=== PATIENT | female | born 1995 | race Two or more races ===

== ENCOUNTER 2016-11-21 08:09 | Day surgery (SDC) | payer BC, OTHER ==
[2016-11-21] MEDS ORDERED: ONDANSETRON 4 MG/2 ML VIAL IVPUSH ONE (08:33)
[2016-11-21] MEDS ORDERED: SODIUM CHLORIDE 1,000 ML IV STA ×2 (08:33→10:43)
[2016-11-21] MEDS ORDERED: morphine CARPU-JECT 4 MG/1 ML DISP.SYRIN IVPUSH ONE ×2 (08:33→08:56)
[2016-11-21] MEDS ORDERED: morphine CARPU-JECT 4 MG/1 ML DISP.SYRIN ONE ×2 (08:35→09:00)
--- NOTE | 2016-11-21 08:37 | PDOC ---
History of Present Illness - General Chief Complaint: Pain, Acute Stated Complaint: ABD PAIN,VOMITING Time Seen by Provider: 11/21/16 08:34 Past History - Past Medical History Allergies/Adverse Reactions: Allergies Allergy/AdvReac Type Severity Reaction Status Date / Time No Known Allergies Allergy Verified 11/21/16 08:15 Home Medications: Ambulatory Orders NK [No Known Home Medication] 11/21/16 Asthma: No Cancer: No Cardiac Disorders: No Diabetes: No HTN: No Seizures: No Thyroid Disease: No Other medical history: DENIES - Surgical History Cholecystectomy: Yes - Psycho/Social/Smoking Cessation Hx Anxiety: No Suicidal Ideation: No Smoking History: Never smoked Have you smoked in the past 12 months: No Hx Alcohol Use: No Drug/Substance Use Hx: No Substance Use Type: Marijuana Hx Substance Use Treatment: No *Physical Exam - Vital Signs Last Vital Signs Temp Pulse Resp BP Pulse Ox 97.8 F 96 H 21 114/55 100 11/21/16 08:16 11/21/16 08:16 11/21/16 08:16 11/21/16 08:16 11/21/16 08:16
[2016-11-21] MEDS ORDERED: ONDANSETRON 4 MG/2 ML VIAL ONE (08:38)
[2016-11-21 08:50] LABS: BASOPHIL 0.2 % (0-2.0); EOSINOPHIL 0.5 % (0-4.5); MCH 30.7 pg (25.7-33.7); MCHC 34.4 g/dl (32.0-36.0); MEAN CELL VOLUME 89.3 fl (80-96); MEAN PLT VOLUME 9.2 fl (7.5-11.1); NEUTROPHILS 75.9 % (42.8-82.8); PLATELET COUNT 174 K/MM3 (134-434); RDW 12.8 % (11.6-15.6); WHITE BLOOD COUNT 7.5 K/mm3 (4.0-10.0)
--- NOTE | 2016-11-21 08:52 | PDOC ---
[id number] Timing/Duration: reports: getting worse Quality: reports: severe, sharpness Pain Radiation: reports: other (lower abd) <Lilia Loco Last Filed: 11/21/16 12:24> <Ayla Ramos - Last Filed: 11/26/16 21:57> - General Chief Complaint: Pain, Acute Stated Complaint: ABD PAIN,VOMITING Past History - Past Medical History Asthma: No Cancer: No Cardiac Disorders: No Diabetes: No HTN: No Seizures: No Thyroid Disease: No Other medical history: DENIES - Surgical History Cholecystectomy: Yes - Psycho/Social/Smoking Cessation Hx Anxiety: No Suicidal Ideation: No Smoking History: Never smoked Have you smoked in the past 12 months: No Hx Alcohol Use: No Drug/Substance Use Hx: No Substance Use Type: Marijuana Hx Substance Use Treatment: No <Lilia Loco - Last Filed: 11/21/16 12:24> <Ayla Ramos - Last Filed: 11/26/16 21:57> - Past Medical History Allergies/Adverse Reactions: Allergies Allergy/AdvReac Type Severity Reaction Status Date / Time No Known Allergies Allergy Verified 11/21/16 08:15 Home Medications: Ambulatory Orders Acetaminophen [Tylenol .Regular Strength -] 650 mg PO Q4H PRN #0 tablet Ascorbic Acid [C-500] 500 mg PO DAILY #30 tablet.er 11/22/16 Ferrous Sulfate [Feosol] 325 mg PO TID #90 tablet 11/22/16 Ibuprofen [Motrin -] 600 mg PO Q4H PRN #30 tablet 11/22/16 Oxycodone HCl/Acetaminophen [Percocet 5-325 mg Tablet] 1 tab PO Q6H #20 tablet MDD 4 tabs 11/22/16 Review of Systems - Review of Systems Constitutional: No: Chills, Fever ABD/GI: Yes: Nausea, Vomiting. No: Diarrhea : No: Dysuria, Frequency, Hematuria Musculoskeletal: Yes: Back Pain <Sara LocoCecilEsperanza Last Filed: 11/21/16 12:24> *Physical Exam - Vital Signs Last Vital Signs Temp Pulse Resp BP Pulse Ox 97.8 F 96 H 21 114/55 100 11/21/16 08:16 11/21/16 08:16 11/21/16 08:16 11/21/16 08:16 11/21/16 08:16 - Physical Exam General Appearance: Yes: Appropriately Dressed, Severe Distress HEENT: positive: Normal Voice Neck: positive: Supple Respiratory/Chest: negative: Respiratory Distress Female Pelvic Exam: positive: normal external exam, other (pt uncomfortable throughout entire pelvic exam, no vaginal bleeding, os closed). negative: CMT, discharge, lesions, vaginal bleeding Gastrointestinal/Abdominal: positive: Normal Bowel Sounds, Tender (diffuse ttp to pelvis and RLQ, exam limited 2/2 severe pain), Soft. negative: Hernia Musculoskeletal: negative: CVA Tenderness Integumentary: positive: Dry, Warm Neurologic: positive: Fully Oriented, Alert, Normal Mood/Affect <Lilia Loco - Last Filed: 11/21/16 12:24> - Vital Signs Last Vital Signs Temp Pulse Resp BP Pulse Ox 98.1 F 64 16 90/56 100 11/22/16 10:00 11/22/16 10:00 11/22/16 10:00 11/22/16 10:00 11/22/16 09:00 <Ayla Ramos - Last Filed: 11/26/16 21:57> ED Treatment Course - LABORATORY CBC & Chemistry Diagram: 11/21/16 08:25 11/21/16 08:25 - Medications Given in the ED: ED Medications Discontinued Medications Generic Name Dose Route Start Last Admin Trade Name Freq PRN Reason Stop Dose Admin Morphine Sulfate 4 mg 11/21/16 08:33 11/21/16 08:40 Morphine Injection - IVPUSH 11/21/16 08:34 4 mg ONCE ONE Administration Ondansetron HCl 4 mg 11/21/16 08:33 11/21/16 08:40 Zofran Injection IVPUSH 11/21/16 08:34 4 mg ONCE ONE Administration <Lilia Loco - Last Filed: 11/21/16 12:24> - LABORATORY CBC & Chemistry Diagram: 11/22/16 06:00 11/21/16 08:25 - ADDITIONAL ORDERS Additional order review: 11/22/16 11/21/16 11/21/16 06:00 17:00 08:25 RBC 2.67 L 3.25 L D 4.36 MCV 89.4 89.6 89.3 MCHC 34.2 34.3 34.4 RDW 12.7 12.8 12.8 D MPV 9.3 9.8 9.2 Neutrophils % 57.4 D 85.7 H 75.9 Lymphocytes % 36.0 D 11.2 D 18.6 D Monocytes % 5.9 D 2.9 L 4.8 Eosinophils % 0.6 D 0.1 0.5 Basophils % 0.1 0.1 0.2 - Medications Given in the ED: ED Medications Discontinued Medications Generic Name Dose Route Start Last Admin Trade Name Freq PRN Reason Stop Dose Admin Acetaminophen 650 mg 11/21/16 15:42 11/22/16 10:28 Tylenol - PO 650 mg Q4H PRN Administration FEVER OR PAIN Acetaminophen 1,000 mg 11/21/16 15:46 11/21/16 16:15 Ofirmev Injection - IVPB 11/22/16 09:47 1,000 mg Q6H PRN Administration FEVER OR PAIN Diphenhydramine HCl 12.5 mg 11/21/16 16:57 11/21/16 16:55 Benadryl Injection - IVPUSH 11/21/16 16:58 12.5 mg ONCE ONE Administration Hydromorphone HCl 1 mg 11/21/16 11:13 11/21/16 11:15 Dilaudid Injection - IVPB 11/21/16 11:14 1 mg ONCE ONE Administration Hydromorphone HCl 1 mg 11/21/16 12:30 11/21/16 12:35 Dilaudid Injection - IVPB 11/21/16 12:31 1 mg ONCE ONE Administration Hydromorphone HCl 1 mg 11/21/16 14:59 11/21/16 16:07 Dilaudid Injection - IVPUSH 11/24/16 15:00 1 mg [id number] PRN Administration PAIN Sodium Chloride 1,000 mls @ 1,000 mls/hr 11/21/16 08:33 11/21/16 08:40 Normal Saline - IV 11/21/16 09:32 1,000 mls/hr ASDIR STA Administration Sodium Chloride 1,000 mls @ 1,000 mls/hr 11/21/16 10:43 11/21/16 11:04 Normal Saline - IV 11/21/16 11:42 1,000 mls/hr ASDIR STA Administration Dextrose/Lactated Ringer's 1,000 mls @ 125 mls/hr 11/21/16 16:15 11/21/16 23:21 D5-Lr - IV 125 mls/hr ASDIR MANDO Administration Cefazolin Sodium 50 mls @ 100 mls/hr 11/21/16 23:00 11/21/16 22:59 Ancef 1 Gm Premixed Ivpb - IVPB 11/21/16 23:29 100 mls/hr ONCE ONE Administration Cefazolin Sodium 50 mls @ 100 mls/hr 11/22/16 07:00 11/22/16 06:24 Ancef 1gm Ivpb (Pre-Docked) IVPB 11/22/16 07:29 100 mls/hr ONCE ONE Administration Ibuprofen 400 mg 11/21/16 15:42 11/22/16 10:28 Motrin - PO 400 mg Q4H PRN Administration FEVER Ketorolac Tromethamine 30 mg 11/21/16 09:10 11/21/16 09:15 Toradol Injection - IVPUSH 11/21/16 09:11 30 mg ONCE ONE Administration Lorazepam 0.5 mg 11/21/16 17:22 11/21/16 16:27 Ativan Injection - IVPUSH 11/22/16 17:23 0.5 mg PRN PRN Administration AGITATION Morphine Sulfate 4 mg 11/21/16 08:33 11/21/16 08:40 Morphine Injection - IVPUSH 11/21/16 08:34 4 mg ONCE ONE Administration Morphine Sulfate 4 mg 11/21/16 08:56 11/21/16 09:03 Morphine Injection - IVPUSH 11/21/16 08:57 4 mg ONCE ONE Administration Ondansetron HCl 4 mg 11/21/16 08:33 11/21/16 08:40 Zofran Injection IVPUSH 11/21/16 08:34 4 mg ONCE ONE Administration Oxycodone HCl 5 mg 11/21/16 15:42 11/22/16 06:18 Roxicodone - PO 5 mg Q4H PRN Administration PAIN <Ayla Ramos - Last Filed: 11/26/16 21:57> Medical Decision Making - Medical Decision Making 11/21/16 08:46 21 yo F, s/p ann remotely, p/w severe pelvic pain x 2 days, described as sharp and constant w/ severity of 10/10 and a/w 1-2 e/o n/v. No ab/nl vag discharge, dysuria, change in BM, f/c. No h/o simialr pain. See exam Pelvic pain Pt in severe distress in ED but stable Limited abd exam currently 2/2 pain but has sig ttp diffusely to pelvis and RLQ Unable to perform pelvic exam at this time due to pain -Pain control and reassess -R/o preg -labs -CT r/o appy -?US 11/21/16 09:22 Serum preg +, called over to US and make aware of change to US protocol to r/o ectopic 11/21/16 10:43 US read as > 4cm complex mass to left adnexa concerning for ectopic as per radiology. Patient's beta-hCG is over 800. Pt remains stable at this time. Type and screen and coags in progress. Will consult with SUPERVISOR PLATE PASTING at this time 11/21/16 10:[address] Wheeler of meter changes records clerk, states she's enroute to ED. Patient to be made NPO at this time 11/21/16 10:49 11/21/16 11:28 Patient able to tolerate abdominal and pelvic exam at this time. Has significant tenderness to mid and left suprapubic area and uncomfortable throughout entire pelvic exam, no vaginal bleeding and OS closed. Currently in monitored bed receiving IV fluids, pain control and pending SUPER[employer]OR [employer] eval 11/21/16 11:53 Dr Almanzar now at bedside evaluating pt. States she will review US to confirm ectopic 11/21/16 12:24 Pt to go to OR now as per Dr Wheeler. Remains stable in ED <Lilia Loco - Last Filed: 11/21/16 12:24> *DC/Admit/Observation/Transfer - Discharge Dispostion Admit: Yes <Lilia Loco - Last Filed: 11/21/16 12:24> - Attestations Physician Attestion: I reviewed the case with the mid-level practitioner and agree with the mid- level practitioner's assessment, diagnosis and disposition. <Ayla Ramos - Last Filed: 11/26/16 21:57> Diagnosis at time of Disposition: Ectopic Qualifiers: Location of ectopic : unspecified location Intrauterine status: unspecified Qualified Code(s): O00.9 - Ectopic , unspecified - Discharge Dispostion Disposition: HOME Condition at time of disposition: Stable - Prescriptions - Referrals
[2016-11-21] MEDS ORDERED: KETOROLAC TROMETHAMINE 30 MG/1 ML VIAL IVPUSH ONE (09:10)
[2016-11-21] MEDS ORDERED: KETOROLAC TROMETHAMINE 30 MG/1 ML VIAL ONE ×2 (09:12→13:18)
[2016-11-21 10:09] LABS: ALBUMIN 4.2 g/dl (3.4-5.0); ANION GAP 8 (8-16); BILIRUBIN,TOTAL 0.3 mg/dL (0.2-1.0); CALCIUM 8.7 mg/dL (8.5-10.1); CO2 26 mmol/L (21-32); CREATININE 0.6 mg/dL (0.55-1.02); GLUCOSE,RANDOM 95 mg/dL (74-106); TOT PROT 7.4 g/dl (6.4-8.2)
[2016-11-21 10:10] LABS: ALK PHOS 68 U/L (45-117); SGOT/AST 10 U/L (15-37); SGPT/ALT 17 U/L (12-78)
[2016-11-21 11:03] LABS: URINE APPEARANCE CLEAR; URINE BILIRUBIN NEGATIVE (NEGATIVE); URINE BLOOD NEGATIVE (NEGATIVE); URINE COLOR LTYELLOW; URINE GLUCOSE (UA) NEGATIVE (NEGATIVE); URINE KETONE TRACE (NEGATIVE); URINE LEUK ESTERASE NEGATIVE (NEGATIVE); URINE NITRITE NEGATIVE (NEGATIVE); URINE PROTEIN NEGATIVE (NEGATIVE); URINE UROBILINOGEN NEGATIVE E.U./dl (0.2-1.0)
[2016-11-21] MEDS ORDERED: HYDROmorphone HCL CARPU-JECT 1 MG/1 ML DISP.SYRIN ONE ×2 (11:12→12:31)
[2016-11-21] MEDS ORDERED: HYDROmorphone HCL CARPU-JECT 1 MG/1 ML DISP.SYRIN IVPB ONE (11:13)
[2016-11-21] MEDS ORDERED: HYDROmorphone HCL CARPU-JECT 2 MG/1 ML DISP.SYRIN IVPB ONE (12:30)
--- NOTE | 2016-11-21 12:34 | HP ---
Past Medical History - Primary Care Physician PCP:: Melony Wheeler - Admission Chief Complaint: 21 yrs , Lmp 10/26/16 , ,c/o sudden onset of pain since 4.00am , progressively inceasingly accompanied by nausea & vomiting . ectopic pregn suspected [place] [facility] [place] Sono done, ut no iup, Lt side complex adnexal mass 4.5x4.1x2.7 cm , Lt ovary 1.9x1,7x2.5 cm cyst seen History of Present Illness: pt c/o pain for 2 days . she is been smoking Marijuana more to alleviate pain . 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 No: PID ...: 3 ...Para: 2 ...Term: 2 (2 2011 & 2013) ...LMP: 10/26/16 Heme/Onc: No: Anemia Infectious Disease: No: HIV, STD's Psych: No: Addictions, Anxiety, Bipolar, Depression Endocrine: No: Diabetes Mellitus, Hyperthyroidism, Hypothyroidism - Past Surgical History Past Surgical History: Yes: Cholecystectomy (Lap choly in 2006 in [facility]) Hx Myomectomy: No Hx Transabdominal Cerclage: No - Smoking History Smoking history: Never smoked Have you smoked in the past 12 months: No - Alcohol/Substance Use Hx Alcohol Use: No History of Substance Use: reports: Marijuana (daily . 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 Vital Signs: Vital Signs Temperature 97.8 F 11/21/16 08:16 Pulse Rate 96 H 11/21/16 08:16 Respiratory Rate 21 11/21/16 08:16 Blood Pressure 114/55 11/21/16 08:16 O2 Sat by Pulse Oximetry (%) 100 11/21/16 08:16 Constitutional: Yes: Severe Distress (pain scale 10/10) Eyes: Yes: WNL HENT: Yes: WNL Neck: Yes: WNL Cardiovascular: Yes: WNL Respiratory: Yes: WNL Gastrointestinal: Yes: Normal Bowel Sounds, Soft, Tenderness, Rebound (in lower abdomen LLQ.LLQ) Renal/: No: CVA Tenderness - Left, CVA Tenderness - Right, Vaginal Bleeding Pelvis: Yes: Tenderness (lower abd supf & deep tenderness) External Genitalia: Yes: Normal Vaginal Exam: Yes: Normal, Discharge (normal discharge) Cervix: Yes: Normal, Cerv Motion Tenderness Uterus: Yes: Normal, Anteverted, Tender Adnexa: Tender: Bilateral, Not Palpable: Bilateral (difficult to palpate due to pain ) Breast(s): Yes: WNL Musculoskeletal: Yes: WNL Extremities: Yes: WNL. No: Calf Tenderness Edema: No Integumentary: Yes: WNL Neurological: Yes: WNL, Alert, Oriented ...Motor Strength: WNL Psychiatric: Yes: WNL, Alert, Oriented Labs: CBC, BMP 11/21/16 08:25 11/21/16 08:25 Laboratory Tests 11/21/16 11/21/16 11/21/16 08:25 08:25 09:33 WBC 7.5 D Hgb 13.4 D Hct 39.0 D Plt Count 174 Neutrophils % 75.9 Lymphocytes % 18.6 D Monocytes % 4.8 Sodium 141 Potassium 3.4 L Chloride 107 Carbon Dioxide 26 BUN 14 D Creatinine 0.6 D Random Glucose 95 Calcium 8.7 Total Bilirubin 0.3 AST 10 L ALT 17 Beta HCG, Quant 810.7 Blood Type O POSITIVE Assessment/Plan 21 yrs 3 .5 weeks gestation, , bhcg 810 miu & Lt adnexal complexmass , free fluid in peritoneal cavity on us ac pain & tenderness highly suspicious of ectopic pregn, leaking. Diff Diagnosis : Early pregn With CL Cyst Rupture plan D&C Pelviscopy , possible Left salpingectomy
[2016-11-21] MEDS ORDERED: MIDAZOLAM HCL 2 MG/2 ML SINGLE DOSE VIAL ONE (13:18)
[2016-11-21] MEDS ORDERED: ceFAZolin SODIUM 1 GM VIAL ONE (13:18)
[2016-11-21] MEDS ORDERED: ROCURONIUM BROMIDE 50 MG/5 ML VIAL ONE (13:18)
[2016-11-21] MEDS ORDERED: DEXAMETHASONE SOD PHOSPHATE 4 MG/1 ML VIAL ONE (13:18)
[2016-11-21] MEDS ORDERED: SODIUM CHLORIDE 0.9% P/F 10 ML VIAL IJ ONE (13:18)
[2016-11-21 13:20] LABS: INR 1.2 (0.82-1.09); PROTHROMBIN TIME (PATIENT) 13.2 SEC (9.98-11.88)
[2016-11-21] MEDS ORDERED: ceFAZolin SODIUM 1 GM VIAL IVPB ONE (13:53)
[2016-11-21] MEDS ORDERED: PROMETHAZINE HCL 25 MG/1 ML VIAL IVPUSH PRN (14:59)
[2016-11-21] MEDS ORDERED: ONDANSETRON 4 MG/2 ML VIAL IVPUSH PRN (14:59)
[2016-11-21] MEDS ORDERED: NEOSTIGMINE METHYLSULFATE 0.5 MG/ML - 10 ML MDV ONE (15:14)
[2016-11-21] MEDS ORDERED: GLYCOPYRROLATE 0.2 MG/1 ML VIAL ONE (15:14)
[2016-11-21] MEDS ORDERED: HYDROmorphone HCL CARPU-JECT 2 MG/1 ML DISP.SYRIN ONE ×2 (15:45→16:00)
[2016-11-21] MEDS ORDERED: ACETAMINOPHEN 1000 MG/100 ML VIAL (NON FORMULARY) IVPB PRN (15:46)
[2016-11-21] MEDS: HYDROmorphone HCL CARPU-JECT 1 MG/1 ML DISP.SYRIN IVPUSH PRN ×3 (15:47→16:07)
--- NOTE | 2016-11-21 15:59 | OP ---
Operative Note - Note: Operative Date: 11/21/16 Pre-Operative Diagnosis: ectopic Operation: D&C, Pelvicscopic Left Salpingectomy, Suction irrigation of peritoneal cavity& Lysis of adnexal adhesions Findings: Ut 9 cm length, soft, Av, cx post uterine contents were old blood Peritoneal cavity full of blood & clots approx 500 ml , 300 ml blood approx suctioned out Rt Adnexa adhesions between & uterus tubes & ovaries , lysis was done LT adnexa Lt Tube distended in distal ampullary portion , tube rupture, blood clots extruding out from tube LT lateral salpingectomy done upto isthmus portion adhesions between lt tube & Ltovary lysis was done Post-Operative Diagnosis: Other (rupture Lt tubal ( ectopic) with hemoperitoneum) Surgeon: Melony Wheeler Treadle Cut Off Saw Operator: Savanna Jackson Anesthesiologist/SENIOR COURTROOM CLERK: Bobo Bravo Anesthesia: General Specimens Removed: uterune contents. Lt tube with cnotents Estimated Blood Loss (mls): 500 (300ml suctioned out ) Drains, Volume Out (mls): 220 (cota output 220 + irrigation 1300 ml )
[2016-11-21] MEDS ORDERED: ACETAMINOPHEN INJECTION 100 ML IVPB ONE (16:01)
[2016-11-21] MEDS ORDERED: LORAZEPAM CARPU-JECT 2 MG/ML DISP.SYRIN ONE (16:23)
[2016-11-21] MEDS ORDERED: LORAZEPAM CARPU-JECT 2 MG/ML DISP.SYRIN IVPUSH PRN (17:22)
[2016-11-21 17:44] LABS: BASOPHIL 0.1 % (0-2.0); EOSINOPHIL 0.1 % (0-4.5); MCH 30.7 pg (25.7-33.7); MCHC 34.3 g/dl (32.0-36.0); MEAN CELL VOLUME 89.6 fl (80-96); MEAN PLT VOLUME 9.8 fl (7.5-11.1); NEUTROPHILS 85.7 % (42.8-82.8); PLATELET COUNT 137 K/MM3 (134-434); RDW 12.8 % (11.6-15.6); WHITE BLOOD COUNT 7.7 K/mm3 (4.0-10.0)
[2016-11-21] MEDS: DEXTROSE 5%-LACTATED RINGERS 1,000 ML IV SCH ×3 (18:00→23:21)
[2016-11-21] MEDS: ACETAMINOPHEN 325 MG TABLET (FP) PO PRN ×2 (19:02→23:00)
[2016-11-21] MEDS: oxyCODONE HCL 5 MG TABLET PO PRN ×2 (19:03→22:59)
[2016-11-21] MEDS ORDERED: CEFAZOLIN (PRE-DOCKED) 50 ML IVPB ONE (22:54)
[2016-11-21] MEDS ORDERED: CEFAZOLIN 1 GM/D5W 50 ML IVPB ONE (23:00)
[2016-11-22 01:27] VITALS: BMI 28.4
[2016-11-22] MEDS ORDERED: CEFAZOLIN (PRE-DOCKED) 50 ML IVPB ONE ×2 (03:00→07:00)
[2016-11-22] MEDS: oxyCODONE HCL 5 MG TABLET PO PRN (06:18)
[2016-11-22] MEDS: IBUPROFEN 400 MG TABLET (FP) PO PRN ×2 (06:19→10:28)
[2016-11-22 07:44] LABS: BASOPHIL 0.1 % (0-2.0); EOSINOPHIL 0.6 % (0-4.5); MCH 30.6 pg (25.7-33.7); MCHC 34.2 g/dl (32.0-36.0); MEAN CELL VOLUME 89.4 fl (80-96); MEAN PLT VOLUME 9.3 fl (7.5-11.1); NEUTROPHILS 57.4 % (42.8-82.8); PLATELET COUNT 124 K/MM3 (134-434); RDW 12.7 % (11.6-15.6); WHITE BLOOD COUNT 4.6 K/mm3 (4.0-10.0)
--- NOTE | 2016-11-22 09:59 | DS ---
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 No: Vomiting Pelvis: Yes: Tenderness (mainly over LLQ incision) Vaginal Exam: Yes: Bleeding (minimal) Breast(s): Yes: WNL Musculoskeletal: Yes: WNL Extremities: Yes: WNL. No: Calf Tenderness Edema: No Wound/Incision: Yes: Clean/Dry, Dressing Dry and Intact Neurological: Yes: WNL, Alert, Oriented ...Motor Strength: WNL Psychiatric: Yes: WNL, Alert, Oriented Labs: CBC, BMP 11/22/16 06:00 11/21/16 08:25 Discharge Summary Reason For Visit: ECTOPIC Current Active Problems Anemia (Acute) Ectopic (Acute) Procedures: Principal: D&C Pelviscopic left salpingectomy , Lysis of adhesions , suction irrigation of hemoperitoneum , Hospital Course: pt taken from ER to OR . post op pain management with iv tylenol & oxycodone, & motrin given . IV fluids continued IV ancef prophylactic x 3 doses were given Condition: Stable - Instructions Diet, Activity, Other Instructions: high iron diet. plenty of po fluids oob, ambulate avoid sexual contact for 4 weeks RTC for f/u on Thursday11/25/16 at 2 [facility]. call [phone] for appt . continue po vitamins & iron pills , pain meds as reqd remove band aids tomorrow, do not remove steri strips. keep incision wounds clean & dry Referrals: Mary Doty MD [Primary Care Provider] - Melony Wheeler MD [Staff Physician] - - Home Medications Comprehensive Discharge Medication List: Ambulatory Orders Acetaminophen [Tylenol .Regular Strength -] 650 mg PO Q4H PRN #0 tablet Ascorbic Acid [C-500] 500 mg PO DAILY #30 tablet.er 11/22/16 Ferrous Sulfate [Feosol] 325 mg PO TID #90 tablet 11/22/16 Ibuprofen [Motrin -] 600 mg PO Q4H PRN #30 tablet 11/22/16 Oxycodone HCl/Acetaminophen [Percocet 5-325 mg Tablet] 1 tab PO Q6H #20 tablet MDD 4 tabs 11/22/16
[2016-11-22] MEDS: ACETAMINOPHEN 325 MG TABLET (FP) PO PRN (10:28)
[2016-11-22 10:41] VITALS: BP 90/56; PULSE 64; TEMP 98.1
--- NOTE | 2016-11-22 21:32 | OP ---
DATE OF OPERATION: 11/21/2016 PREOPERATIVE DIAGNOSIS: Ectopic . POSTOPERATIVE DIAGNOSIS: Left ruptured ectopic with hemoperitoneum. OPERATION DONE: Dilatation and curettage, pelviscopic left lateral salpingectomy, and suction irrigation of the hemoperitoneum. SURGEON: Melony Wheeler MD MILKING WORKER SURGEON: JONNY Mosley ANESTHESIOLOGIST: Bobo Bravo MD ANESTHESIA: General. FINDINGS: This is a 21-year-old 3, para 2-0-0-2. LMP is October 26. Beta HCG was 810. Presented with severe abdominal acute pain and ultrasound shows no IUP and a left adnexal complex mass, free fluid in the peritoneal cavity. PROCEDURE: Patient was taken to the operating room table. General anesthesia was given. Modified lithotomy position was given, and abdomen was painted and draped in usual manner. Pelvic examination was done. Uterus was anteverted and adnexae were not palpable. Cervix was posterior. Weighted speculum was put anteriorly. The cervix was held with a single-tooth tenaculum and cervix was dilated up to No. 7 dilator. The uterine cavity was curetted. Just old blood clots were obtained which were removed and then HUMI cannula was introduced into the uterine cavity. Tenaculum was removed. Weighted speculum was removed. Arias catheter was placed. Proceeded with the pelviscopy. Gloves were changed and position was readjusted. A small incision was made at the umbilicus level and a Veress needle was introduced into the peritoneal cavity. CO2 was insufflated into the peritoneal cavity and a 5-mm trocar and cannula were introduced from the same incision into the peritoneal cavity and position was confirmed. The blood clots were noted. Then, the 5-mm trocar and cannula were introduced from the right lower quadrant and 10-mm trocar and cannula were introduced from the left lower quadrant. Initially, some blood clots in the pelvic area and the blood were aspirated out. Then, from the left side LigaSure was inserted and from the right side grasper was held and the tube was isolated. First, adhesions were lysed between the left tube and ovary and then the tube was . Starting with the lateral portion of the tube between the mesosalpinx and the ovary closer to the distended portion of the tube,i it was cauterized and cut until the proximal portion of the tube was reached and then the specimen was . The left side findings were the adhesions between the left tube and ovary. The left tube was distended and it was ruptured and the blood clots were seen extruding out from the superior portion of the tube. The right tube and ovary were normal, but there were adhesions between the tube, ovary, and the uterus and some adhesions between the adnexae and the uterus where lysis was done there. Then, the attempt was made as much as possible blood clot irrigation and suction as much as possible was done in then reverse Trendelenburg and Trendelenburg position. Once it was made sure there was no active bleeding from the operative site, hemostasis was achieved and then Boom-Cesar device was introduced from the left side and the left port was closed with a Vicryl 0 suture and it was confirmed with the laparoscopic light that the complete peritoneum and anterior rectus sheath were closed. Then, the deep sutures were taken with a 2-0 Vicryl and then with a 4-0 Biosyn intradermal sutures were taken with all the incisions. Before closing all the incisions, it was made sure that the port underneath was clean and no bleeding was noted. The gas was then deflated and patient tolerated procedure well. Steri- Strips and Band-Aids were applied to the incision site. HUMI cannula was removed. Estimated blood loss was 500 mL, 300 mL suction was done, and the rest with the blood clots still in abdomen, mixed with omentum & between bowel loops could not be taken out, were left alone . and the urine output was 220 mL, jere color. Total irrigation fluid was 1300 mL. She was given IV Ancef prior to the starting of the procedure. Gisele [id number] MTDD
--- NOTE | 2016-11-25 12:10 | PATH ---
Surgical Pathology Report Patient Name: JOSE FITZGERALD Med. Rec. #: [id number] /Age/Gender: 1995 (Age: 21) / F Account: [id number] Location: AMBULATORY SURG Taken: 11/21/2016 Received: 11/24/2016 Reported: 11/25/2016 Physicians: Melony Wheeler M.D. Specimen(s) Received A: UTERINE CONTENTS B: LEFT FALLOPIAN TUBE Clinical History Ectopic , rupture ectopic, hemoperitoneum Final Diagnosis A. ENDOMETRIAL CURETTAGE: FRAGMENTS OF SECRETORY AND INACTIVE ENDOMETRIUM WITH DECIDUAL-TYPE STROMAL CHANGES. B. FALLOPIAN TUBE, LEFT, SALPINGECTOMY: DISRUPTED FALLOPIAN TUBE WITH ACUTE HEMORRHAGE AND CHORIONIC VILLOUS TISSUE CONSISTENT WITH RUPTURED TUBAL . Electronically Signed Jc Weaver M.D. Gross Description A. Received in formalin, labeled "endometrial curettings (uterine contents)" is a 2.5 x 2.2 x 0.3 cm aggregate of solorzano soft tissue fragments admixed with mucus. The formalin is filtered and the specimen is entirely submitted in one cassette. B. Received in formalin, labeled "left fallopian tube" is a 5 cm in length dilated, focally disrupted portion of fallopian tube. There is red-brown blood clot attached to the defect. No fimbria are identified. No definite villous tissue or somatic tissue is grossly identified. Superintendent Operating sections are submitted in 3 cassettes. /11/24/2016 saudi/11/24/2016
--- NOTE | 2016-11-28 14:48 | SURG ---
Surgery Senior Quality Assurance Engineer Note Senior Quality Assurance Engineer: Savanna Jackson PA-C Date of Service: 11/21/16 Diagnosis: ectopic Procedure: D&C, Pelvicscopic Left Salpingectomy, Suction irrigation of peritoneal cavity& Lysis of adnexal adhesions I was present for the entirety of the operative procedure. For further detail, please refer to operative report. Visit type - Case Type Case Type: ED Admission - Emergency Emergency Visit: Yes Care time: The patient presented to the Emergency Department on the above date and was hospitalized for further evaluation of their emergent condition. - New patient This patient is new to me today: Yes Date on this admission: 11/28/16 - Critical Care Critical Care patient: No Total Critical Care Time: 20
== END 2016-11-22 10:55 | disposition home or self-care (01) ==
LOC: JER 08:09 → JASUSAT 12:20 → J8W 18:13 → JASUSAT 11-22 10:55
PROVIDERS: ATTEND Obstetrics & Gynecology
PROC: 0UB64ZZ Excision of Left Fallopian Tube, Percutaneous Endoscopic Approach (ICD-10-PCS; 2016-11-21)
PROC: 0UDB7ZX Extraction of Endometrium, Via Natural or Artificial Opening, Diagnostic (ICD-10-PCS; principal; 2016-11-21 13:00)
PROC: 10T24ZZ Resection of Products of Conception, Ectopic, Percutaneous Endoscopic Approach (ICD-10-PCS; 2016-11-21 13:00)
DX: O00.10 Tubal pregnancy without intrauterine pregnancy (principal); K66.1 Hemoperitoneum
CPT/HCPCS: 36415; 76801-TC; 80053; 81003; 83690; 84702; 84703; 85025; 85610; 86850; 86900; 86901; 88305-TC; 94760; 99285-25

== ENCOUNTER 2016-11-23 11:05 | Observation (INO) | payer OTHER ==
--- NOTE | 2016-11-23 11:17 | PDOC ---
[id number]: 11/23/16 11:16 History Source: Patient Exam Limitations: No Limitations - History of Present Illness Initial Comments: 11/23/16 11:52 Chief complaint: Postop pain Patient is 21-year-old female who was found to have an ectopic 2 days ago and had her left tube removed. Patient went home and came back today because she's having worsening pain, vaginal bleeding and states that she has swelling to her legs. Patient's also complaining of nausea and lightheadedness. No fever GENERAL/CONSTITUTIONAL: No fever, weakness. dizziness HEAD, EYES, EARS, NOSE AND THROAT: No change in vision. No ear pain or discharge. No sore throat. CARDIOVASCULAR: No chest pain RESPIRATORY: No shortness of breath or cough GASTROINTESTINAL: No pain,+ nausea, no: vomiting, diarrhea or constipation GENITOURINARY: No dysuria, + pelvic pain, + vaginal bleeding MUSCULOSKELETAL: No neck or back pain SKIN: No rash NEUROLOGIC: No headache, vertigo, loss of consciousness, or loss of sensation. GENERAL: The patient is awake, alert, and fully oriented, in no acute distress. HEAD: Normal with no signs of trauma. EYES: Pupils equal, round and reactive to light, sclera anicteric, conjunctiva clear. ENT: pharynx: no erythema, no exudate, uvula midline NECK: supple CHEST: clear, nontender, rr ABD: soft, with lower abd/pelvic tenderness and guarding EXTREMITIES: Normal range of motion, no edema. NEUROLOGICAL: Normal speech, normal gait. SKIN: Warm, Dry Past History - Past Medical History Allergies/Adverse Reactions: Allergies Allergy/AdvReac Type Severity Reaction Status Date / Time No Known Allergies Allergy Verified 11/21/16 08:15 Home Medications: Ambulatory Orders Acetaminophen [Tylenol .Regular Strength -] 650 mg PO Q4H PRN #0 tablet Ascorbic Acid [C-500] 500 mg PO DAILY #30 tablet.er 11/22/16 Ferrous Sulfate [Feosol] 325 mg PO TID #90 tablet 11/22/16 Ibuprofen [Motrin -] 600 mg PO Q4H PRN #30 tablet 11/22/16 Oxycodone HCl/Acetaminophen [Percocet 5-325 mg Tablet] 1 tab PO Q6H #20 tablet MDD 4 tabs 11/22/16 Asthma: No Cancer: No Cardiac Disorders: No Diabetes: No HTN: No Seizures: No Thyroid Disease: No - Surgical History Cholecystectomy: Yes - Psycho/Social/Smoking Cessation Hx Anxiety: No Suicidal Ideation: No Smoking History: Current every day smoker Have you smoked in the past 12 months: Yes Number of Cigarettes Smoked Daily: 4 Hx Alcohol Use: No Drug/Substance Use Hx: Yes Substance Use Type: Marijuana Hx Substance Use Treatment: No ED Treatment Course - LABORATORY CBC & Chemistry Diagram: 11/23/16 11:53 11/23/16 11:53 Medical Decision Making - Medical Decision Making 11/23/16 11:55 11:40 AM all placed to Dr. walsh 11/23/16 14:35 CT results discussed with Dr. Dalal, with like an ultrasound and then we'll discuss 11/23/16 18:15 pt continues to be in significant pain. awaiting us report, discussed with dr dalal will place on observation even if no acute findings. discussed with patient 11/23/16 18:49 sign out to sherry, to follow repeat cbc, us results and call dr. dalal. once results are back and pt does not need or, can be put on observation and dr. dalal will put orders in. *DC/Admit/Observation/Transfer Diagnosis at time of Disposition: Pain in pelvis
[2016-11-23] MEDS ORDERED: morphine CARPU-JECT 4 MG/1 ML DISP.SYRIN IVPUSH ONE (11:28)
[2016-11-23] MEDS ORDERED: ONDANSETRON 4 MG/2 ML VIAL IVPUSH ONE (11:35)
[2016-11-23] MEDS ORDERED: morphine CARPU-JECT 4 MG/1 ML DISP.SYRIN ONE (11:37)
[2016-11-23] MEDS ORDERED: ONDANSETRON 4 MG/2 ML VIAL ONE (11:37)
[2016-11-23 11:56] LABS: BASOPHIL 0.2 % (0-2.0); EOSINOPHIL 1.5 % (0-4.5); MCH 30.6 pg (25.7-33.7); MEAN CELL VOLUME 90.1 fl (80-96); MEAN PLT VOLUME 8.8 fl (7.5-11.1); NEUTROPHILS 63.7 % (42.8-82.8); PLATELET COUNT 148 K/MM3 (134-434); WHITE BLOOD COUNT 6.3 K/mm3 (4.0-10.0)
[2016-11-23 12:22] LABS: ALBUMIN 3.2 g/dl (3.4-5.0); ANION GAP 8 (8-16); BILIRUBIN,TOTAL 0.1 mg/dL (0.2-1.0); CALCIUM 7.9 mg/dL (8.5-10.1); CO2 29 mmol/L (21-32); CREATININE 0.6 mg/dL (0.55-1.02); GLUCOSE,RANDOM 74 mg/dL (74-106); SGOT/AST 13 U/L (15-37); SGPT/ALT 14 U/L (12-78); TOT PROT 5.8 g/dl (6.4-8.2)
[2016-11-23 12:23] LABS: ALK PHOS 56 U/L (45-117)
[2016-11-23] MEDS ORDERED: HYDROmorphone HCL CARPU-JECT 1 MG/1 ML DISP.SYRIN ONE ×3 (13:01→20:48)
[2016-11-23] MEDS ORDERED: HYDROmorphone HCL CARPU-JECT 1 MG/1 ML DISP.SYRIN IVPUSH ONE ×3 (13:01→20:44)
[2016-11-23 13:02] LABS: URINE APPEARANCE CLEAR; URINE BILIRUBIN NEGATIVE (NEGATIVE); URINE COLOR STRAW; URINE GLUCOSE (UA) NEGATIVE (NEGATIVE); URINE KETONE NEGATIVE (NEGATIVE); URINE LEUK ESTERASE NEGATIVE (NEGATIVE); URINE NITRITE NEGATIVE (NEGATIVE); URINE PROTEIN NEGATIVE (NEGATIVE); URINE UROBILINOGEN NEGATIVE E.U./dl (0.2-1.0)
[2016-11-23 13:11] LABS: URINE BLOOD 2+ (NEGATIVE)
[2016-11-23 13:13] LABS: URINE BACTERIA RARE /hpf (NONE SEEN); URINE MUCUS RARE; URINE RBC 3 /hpf (0-3); URINE WBC 4 /hpf (3-5)
[2016-11-23] MEDS ORDERED: SODIUM CHLORIDE 1,000 ML IV STA ×2 (14:35→16:21)
[2016-11-23] MEDS ORDERED: morphine CARPU-JECT 2 MG/1 ML DISP.SYRIN IVPUSH ONE (16:21)
[2016-11-23] MEDS ORDERED: morphine CARPU-JECT 2 MG/1 ML DISP.SYRIN ONE (16:30)
--- NOTE | 2016-11-23 19:25 | PDOC ---
*Physical Exam - Vital Signs Last Vital Signs Temp Pulse Resp BP Pulse Ox 98.1 F 93 H 18 112/64 100 11/23/16 11:10 11/23/16 11:10 11/23/16 11:10 11/23/16 11:10 11/23/16 11:10 <Makenzie Hall - Last Filed: 11/23/16 19:26> - Vital Signs Last Vital Signs Temp Pulse Resp BP Pulse Ox 98.1 F 93 H 18 112/64 100 11/23/16 11:10 11/23/16 11:10 11/23/16 11:10 11/23/16 11:10 11/23/16 11:10 <Richard Rios - Last Filed: 11/23/16 20:54> ED Treatment Course - LABORATORY CBC & Chemistry Diagram: 11/23/16 11:53 11/23/16 11:53 - ADDITIONAL ORDERS Additional order review: Laboratory Results 11/23/16 11/23/16 11/23/16 11:53 11:34 11:34 Sodium 144 Potassium 3.5 Chloride 107 Carbon Dioxide 29 Anion Gap 8 BUN 9 D Creatinine 0.6 Creat Clearance w eGFR > 60 Random Glucose 74 D Calcium 7.9 L Total Bilirubin 0.1 L D AST 13 L D ALT 14 Alkaline Phosphatase 56 Total Protein 5.8 L D Albumin 3.2 L D Urine Color Straw Urine Appearance Clear Urine pH 7.0 Ur Specific [place] 1.010 Urine Protein Negative Urine Glucose (UA) Negative Urine Ketones Negative Urine Blood 2+ H Urine Nitrite Negative Urine Bilirubin Negative Urine Urobilinogen Negative Ur Leukocyte Esterase Negative Urine RBC 3 Urine WBC 4 Ur Epithelial Cells Moderate Urine Bacteria Rare Urine Mucus Rare Blood Type O POSITIVE Antibody Screen Negative 11/23/16 11:53 RBC 3.17 L MCV 90.1 MCHC 34.0 RDW 13.0 MPV 8.8 Neutrophils % 63.7 Lymphocytes % 29.0 Monocytes % 5.6 Eosinophils % 1.5 D Basophils % 0.2 - RADIOLOGY Radiograph Interpretation: 11/23/16 19:28 EXAM: Ultrasound pelvis transabdominal and transvaginal with duplex by Valentín Tong MD at 19:04 EST REASON FOR EXAM: Pelvic pain. Status post left ectopic and a left salpingectomy COMPARISON: Abdomen and pelvis CT from earlier on the same date FINDINGS: The uterus is mildly enlarged and hyperemic. The endometrium is thickened measuring up to 3.1 cm containing complex fluid and debris and numerous shadowing echogenic foci compatible with gas. In the setting of recent instrumentation findings may represent normal postprocedural changes, otherwise endometritis is a consideration The ovaries are normal in size and appearance, both containing small follicles. There is normal vascularity in both ovaries on Doppler evaluation Moderate amount of complex fluid in the posterior cul-de- sac compatible with blood in addition to fluid about both adnexa. Also noted on prior CT. - Medications Given in the ED: ED Medications Discontinued Medications Generic Name Dose Route Start Last Admin Trade Name Freq PRN Reason Stop Dose Admin Hydromorphone HCl 0.5 mg 11/23/16 13:01 11/23/16 13:06 Dilaudid Injection - IVPUSH 11/23/16 13:02 0.5 mg ONCE ONE Administration Hydromorphone HCl 0.5 mg 11/23/16 18:00 11/23/16 18:03 Dilaudid Injection - IVPUSH 11/23/16 18:01 0.5 mg ONCE ONE Administration Sodium Chloride 1,000 mls @ 1,000 mls/hr 11/23/16 14:35 11/23/16 16:29 Normal Saline - IV 11/23/16 15:34 1,000 mls/hr ASDIR STA Administration Sodium Chloride 1,000 mls @ 1,000 mls/hr 11/23/16 16:21 11/23/16 16:35 Normal Saline - IV 11/23/16 17:20 1,000 mls/hr ASDIR STA Administration Morphine Sulfate 4 mg 11/23/16 11:28 11/23/16 11:40 Morphine Injection - IVPUSH 11/23/16 11:29 4 mg ONCE ONE Administration Morphine Sulfate 2 mg 11/23/16 16:21 11/23/16 16:35 Morphine Injection - IVPUSH 11/23/16 16:22 2 mg ONCE ONE Administration Ondansetron HCl 4 mg 11/23/16 11:35 11/23/16 11:40 Zofran Injection IVPUSH 11/23/16 11:36 4 mg ONCE ONE Administration <Makenzie Hall - Last Filed: 11/23/16 19:26> - LABORATORY CBC & Chemistry Diagram: 11/23/16 19:45 11/23/16 11:53 - ADDITIONAL ORDERS Additional order review: Laboratory Results 11/23/16 11/23/16 11/23/16 11:53 11:34 11:34 Sodium 144 Potassium 3.5 Chloride 107 Carbon Dioxide 29 Anion Gap 8 BUN 9 D Creatinine 0.6 Creat Clearance w eGFR > 60 Random Glucose 74 D Calcium 7.9 L Total Bilirubin 0.1 L D AST 13 L D ALT 14 Alkaline Phosphatase 56 Total Protein 5.8 L D Albumin 3.2 L D Urine Color Straw Urine Appearance Clear Urine pH 7.0 Ur Specific [place] 1.010 Urine Protein Negative Urine Glucose (UA) Negative Urine Ketones Negative Urine Blood 2+ H Urine Nitrite Negative Urine Bilirubin Negative Urine Urobilinogen Negative Ur Leukocyte Esterase Negative Urine RBC 3 Urine WBC 4 Ur Epithelial Cells Moderate Urine Bacteria Rare Urine Mucus Rare Blood Type O POSITIVE Antibody Screen Negative 11/23/16 11:53 RBC 3.17 L MCV 90.1 MCHC 34.0 RDW 13.0 MPV 8.8 Neutrophils % 63.7 Lymphocytes % 29.0 Monocytes % 5.6 Eosinophils % 1.5 D Basophils % 0.2 - Medications Given in the ED: ED Medications Discontinued Medications Generic Name Dose Route Start Last Admin Trade Name Freq PRN Reason Stop Dose Admin Hydromorphone HCl 0.5 mg 11/23/16 13:01 11/23/16 13:06 Dilaudid Injection - IVPUSH 11/23/16 13:02 0.5 mg ONCE ONE Administration Hydromorphone HCl 0.5 mg 11/23/16 18:00 11/23/16 18:03 Dilaudid Injection - IVPUSH 11/23/16 18:01 0.5 mg ONCE ONE Administration Sodium Chloride 1,000 mls @ 1,000 mls/hr 11/23/16 14:35 11/23/16 16:29 Normal Saline - IV 11/23/16 15:34 1,000 mls/hr ASDIR STA Administration Sodium Chloride 1,000 mls @ 1,000 mls/hr 11/23/16 16:21 11/23/16 16:35 Normal Saline - IV 11/23/16 17:20 1,000 mls/hr ASDIR STA Administration Morphine Sulfate 4 mg 11/23/16 11:28 11/23/16 11:40 Morphine Injection - IVPUSH 11/23/16 11:29 4 mg ONCE ONE Administration Morphine Sulfate 2 mg 11/23/16 16:21 11/23/16 16:35 Morphine Injection - IVPUSH 11/23/16 16:22 2 mg ONCE ONE Administration Ondansetron HCl 4 mg 11/23/16 11:35 11/23/16 11:40 Zofran Injection IVPUSH 11/23/16 11:36 4 mg ONCE ONE Administration <Richard Rios - Last Filed: 11/23/16 20:54> Medical Decision Making - Medical Decision Making 11/23/16 19:23 D/W US with Mulugeta he is awaiting repeat cbc to make a disposition. 11/23/16 20:17 cbc repeat d/w with Dr. Dalal state to admit patient to Obs with repeat cbc at 10pm, NPO. 11/23/16 20:51 Patient given Dilaudid 0.5mg IV. <Richard Rios - Last Filed: 11/23/16 20:54> *DC/Admit/Observation/Transfer <Makenzie Hall - Last Filed: 11/23/16 19:26> - Discharge Dispostion Admit: Yes <Richard Rios - Last Filed: 11/23/16 20:54> Diagnosis at time of Disposition: Pelvic pain, Vaginal bleeding, Post-operative pain Anemia Qualifiers: Anemia type: unspecified type Qualified Code(s): D64.9 - Anemia, unspecified - Discharge Dispostion Condition at time of disposition: Stable - Referrals - Patient Instructions - Post Discharge Activity
[2016-11-23] MEDS ORDERED: ACETAMINOPHEN INJECTION 100 ML IVPB ONE (19:45)
[2016-11-23] MEDS ORDERED: ACETAMINOPHEN 1000 MG/100 ML VIAL (NON FORMULARY) IVPB ONE (19:50)
[2016-11-23 19:51] LABS: MCHC 34.4 g/dl (32.0-36.0); MEAN CELL VOLUME 90.2 fl (80-96); MEAN PLT VOLUME 9.2 fl (7.5-11.1); PLATELET COUNT 128 K/MM3 (134-434); RDW 13.1 % (11.6-15.6); WHITE BLOOD COUNT 4.7 K/mm3 (4.0-10.0)
[2016-11-23] MEDS ORDERED: OXYCODONE/APAP 5/325MG COMBO TABLET PO PRN (22:57)
--- NOTE | 2016-11-23 22:57 | HP ---
Admitting History and Physical - Admission Chief Complaint: abd pain History of Present Illness: 21 y/o sp laparoscopy for ectopic on thursday comes with abd pain today. Ct and sono shows ff in cds. BP stable and pulse normal. Hb is 8.7, a variance from post op. Pt o/w is stabe. Will watch in house overnight with pain meds. 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 No: Ascites, Cancer, Constipation, Crohn's Disease, Diverticulitis, Diverticulosis, Esophageal Varices, Gastritis, GERD, GI Bleed, Hemorrhoids, Hiatal Hernia, Inflamatory Bowel Disease, Irritable Bowel Disease, Pancreatitis, Peptic Ulcer Disease, Ulcerative Colitis Hepatobiliary: No: Cirrhosis, Cholelithiasis, Cholecystitis, Choledocholithiasis , Hepatitis A, Hepatitis B, Hepatitis C, Other Renal/: No: Renal Failure, Renal Inusuff, BPH, Cancer, Hematuria, Hemodialysis , Neurogenic Bladder, Renal Calculi, UTI, Other ...LMP: 10/26/16 ...: No Heme/Onc: No: Anemia, B12 Deficiency, Bleeding Disorder, Cancer, Current Chemotherapy, Current Radiation Therapy, Hemochromatosis, Hypercoaguable State, Myeloproliferative Synd, Sickle Cell Disease, Sickle Cell Trait, Thrombocytopenia, Other Infectious Disease: No: AIDS, C-Diff, Herpes Zoster, HIV, MRSA, STD's, Tuberculosis, VREF, Other Psych: No: Addictions, Anxiety, Bipolar, Depression, Panic, Psychosis, Schizophrenia, Other Musculoskeletal: No: Bursitis, Chronic low back pain, Hemiparesis, Hemiplegia, Osteoarthritis, Paraplegia, Other Rheumatology: No: Fibromyalgia, Gout, Lupus, Rheumatoid Arthritis, Sarcoidosis, Vasculitis, Other ENT: No: Allergic Rhinitis, Sinusitis, Other Endocrine: No: Long's Disease, [place]'s Disease, Diabetes Insipidus, Diabetes Mellitus, Hyperparathyroidism, Hyperthyroidism, Hypothyroidism, Osteopenia, SIADH, Other Dermatology: No: Basal Cell, Cellulitis, Eczema, Melanoma, Psoriasis, Squamous Cell, Other - Past Surgical History Past Surgical History: Yes: Cholecystectomy (Lap choly in 2006 in [facility]) - Advance Directives Advance Directives: No: Living Will, Health Care Proxy, DNR, Organ Donor, Tissue Donor - Smoking History Smoking history: Current every day smoker Have you smoked in the past 12 months: Yes Aproximately how many cigarettes per day: 4 - Alcohol/Substance Use Hx Alcohol Use: No History of Substance Use: reports: Marijuana (daily . for past 2 days 3/daily) - Social History ADL: Independent History of Recent Travel: No Home Medications - Allergies Allergies/Adverse Reactions: Allergies Allergy/AdvReac Type Severity Reaction Status Date / Time No Known Allergies Allergy Verified 11/21/16 08:15 - Home Medications Home Medications: Ambulatory Orders Acetaminophen [Tylenol .Regular Strength -] 650 mg PO Q4H PRN #0 tablet Ascorbic Acid [C-500] 500 mg PO DAILY #30 tablet.er 11/22/16 Ferrous Sulfate [Feosol] 325 mg PO TID #90 tablet 11/22/16 Ibuprofen [Motrin -] 600 mg PO Q4H PRN #30 tablet 11/22/16 Oxycodone HCl/Acetaminophen [Percocet 5-325 mg Tablet] 1 tab PO Q6H #20 tablet MDD 4 tabs 11/22/16 Review of Systems - Review of Systems Constitutional: denies: No Symptoms, Chills, Diaphoresis, Fever, Lethargy, Loss of Appetite, Malaise, Night Sweats, Unintentional Wgt. Loss, Weakness, Other Eyes: denies: No Symptoms, Blind Spots, Blurred Vision, Double Vision, Eye Pain , Floaters, Photophobia, Recent Change in Vision, Other HENT: denies: No Symptoms, Difficult Swallowing, Ear Discharge, Ear Pain, Epistaxis, Gingival Bleeding, Hearing Loss, Mouth Swelling, Nasal Congestion, Ocular Prosthesis, Throat Pain, Toothache, Ringing in Ears, Other Neck: denies: No Symptoms, Decreased ROM, Lumps, Pain on Movement, Stiffness, Swollen Glands, Tenderness, Other Cardiovascular: denies: No Symptoms, Chest Pain, Edema, Palpitations, Shortness of Breath, Other Respiratory: denies: No Symptoms, Cough, Exercise Intolerance, Hemoptysis, Orthopnea, PND, Snoring, SOB, SOB on Exertion, Wheezing, Other Gastrointestinal: denies: No Symptoms, Abdominal Pain, Bloating, Constipation, Diarrhea, Dysphagia (abd pain), Indigestion, Melena, Nausea, Rectal Bleeding, Vomiting, Vomiting Blood, Other Breasts: denies: No Symptoms Reported, See HPI, Breast Implants, Discharge from Nipple, Lumps, Pain, Skin Changes, Other Musculoskeletal: denies: No Symptoms, Back Pain, Crepitus, Decreased ROM, Extremity Pain, Joint Pain, Joint Swelling, Muscle Pain, Muscle Cramps, Muscle Weakness, Other Integumentary: denies: No Symptoms, Blister, Bruising, Change in Color, Eczema, Erythema, Incision, Lesions, Lump, Pallor, Pruritis, Rash, Wound, Other Neurological: denies: No Symptoms, Change in LOC, Change in Speech, Confusion, Dizziness, Headache, Incoordination, Numbness, Parasthesia, Pre-Existing Deficit , Seizure, Syncope, Tremors, Unsteady Gait, Weakness, Other Physical Examination Vital Signs: Vital Signs Temperature 98.4 F 11/23/16 21:15 Pulse Rate 78 11/23/16 21:15 Respiratory Rate 20 11/23/16 21:15 Blood Pressure 132/71 11/23/16 21:15 O2 Sat by Pulse Oximetry (%) 99 11/23/16 19:57 Constitutional: Yes: Well Nourished Eyes: Yes: WNL HENT: Yes: WNL Neck: Yes: WNL Cardiovascular: Yes: WNL Respiratory: Yes: WNL Gastrointestinal: Yes: WNL ...Rectal Exam: Yes: Other (inc is cdi) Breast(s): Yes: WNL Musculoskeletal: Yes: WNL Extremities: Yes: WNL Integumentary: Yes: WNL Wound/Incision: Yes: Clean/Dry Neurological: Yes: WNL ...Motor Strength: WNL Assessment/Plan as above admit labs pain meds
[2016-11-23 23:41] VITALS: BMI 26.0
[2016-11-24] MEDS: oxyCODONE HCL 5 MG TABLET PO PRN ×2 (01:01→09:24)
[2016-11-24] MEDS: ACETAMINOPHEN 325 MG TABLET (FP) PO PRN ×3 (01:02→13:39)
[2016-11-24 09:12] LABS: BASOPHIL 0.3 % (0-2.0); EOSINOPHIL 2.8 % (0-4.5); MCH 30.6 pg (25.7-33.7); MCHC 33.7 g/dl (32.0-36.0); MEAN CELL VOLUME 90.7 fl (80-96); MEAN PLT VOLUME 9.2 fl (7.5-11.1); NEUTROPHILS 41.3 % (42.8-82.8); PLATELET COUNT 131 K/MM3 (134-434); RDW 13.1 % (11.6-15.6); WHITE BLOOD COUNT 3.9 K/mm3 (4.0-10.0)
[2016-11-24 12:19] VITALS: PULSE 72; TEMP 98.2
[2016-11-24 13:11] VITALS: BP 126/69
--- NOTE | 2016-11-24 13:16 | PN ---
Progress Note (short form) - Note Progress Note: pt presented in the ER 11/23/16 for c/o abd pain & vag, bleeding. . Dr Dalal notified me on 11/23 ,that she is admitted for observation . pharmaxy did not fill her Rx for Percocet, due to failure of electronic transmission. . Ct scan & sono done In ER is reported free fluid .. cbc no change seen since she was discharged on 11/22/16 . pt is s/p d&c pelviscopic Left salpingectomy due to rupture left tubal ( ectopic ) , hemperitoneum could not be compmletely suction out, hence still blood clots were remaining in the peritoneal cavity , that explains free fluid seen on ct scan done post op 11/23/16. pt is concerned about vaginal bleeding, I explained her that is expected, due to D & C complete em lning was not curetted hence she will have vaginal bleeding like period . she sometimes feel fainting spells , that is due to anemia . She declines blood transfusion her vital signs are stable . RS- cta p/a soft , tenderness more around left incision site , due to deep suture taken through peritoneum . band aids removed, steri dtrips in situ . bs active . lower extremities, no calf tenderness. bruise tee seen on legs probably due to pressure from sirrups Selected Entries 11/24/16 11/24/16 11/24/16 09:45 12:19 12:45 Temperature 99.1 F 98.2 F Pulse Rate 88 72 Blood Pressure 108/52 117/61 126/69 Blood Pressure 79 Mean Laboratory Tests 11/23/16 11/23/16 11/24/16 11:53 19:45 06:00 Hgb 9.7 L D 8.4 L Hct 28.6 L D 25.3 L 25.0 L Laboratory Tests 11/22/16 11/24/16 06:00 06:00 WBC 3.9 L RBC 2.75 L Hgb 8.4 L Hct 25.0 L Beta HCG, Quant 329.7 Laboratory Tests 11/23/16 11:34 Urine Protein Negative Urine Blood 2+ H Urine Nitrite Negative Ur Leukocyte Esterase Negative Urine RBC 3 Urine WBC 4 ass : stable anemia post rupture ectopic plan discharge today. . anemia counselled ct pain meds & iron & vitamins ..
== END 2016-11-24 14:10 | disposition home or self-care (01) ==
LOC: JER 11:05 → JERBED 20:19 → J3W 21:26
PROVIDERS: ADMIT Obstetrics & Gynecology; ATTEND Obstetrics & Gynecology
DX: N93.8 Other specified abnormal uterine and vaginal bleeding (principal); D64.9 Anemia, unspecified; F17.210 Nicotine dependence, cigarettes, uncomplicated; R10.2 Pelvic and perineal pain; G89.18 Other acute postprocedural pain
CPT/HCPCS: 36415; 74177-TC; 76830-TC; 76856-TC; 80053; 81003; 81015; 85025; 85027; 86850; 86900; 86901; 99285-25; G0378

== ENCOUNTER 2018-06-26 09:44 | Emergency (ER) | payer OTHER ==
[2018-06-26 09:49] VITALS: BP 111/67; PULSE 90; TEMP 98.1; BMI 29.0
--- NOTE | 2018-06-26 09:57 | PDOC ---
History of Present Illness - General Chief Complaint: Sore Throat Stated Complaint: SORE THROAT Time Seen by Provider: 06/26/18 09:50 History Source: Patient Exam Limitations: No Limitations - History of Present Illness Initial Comments: CHIEF COMPLAINT: 22 y/o , afebrile female c/o sore throat and cold symptoms x 3 days. HISTORY OF PRESENT ILLNESS: Patient states her 2 children have similar symptoms. She denies cough, runny nose, fever, CP, SOB, n/v/d. Vital signs on arrival are within normal limits. REVIEW OF SYSTEMS: GENERAL/CONSTITUTIONAL: No fever/chills. No weakness. No weight change. HEAD, EYES, EARS, NOSE AND THROAT: No change in vision. +left earache. + sore throat CARDIOVASCULAR: No chest pain or shortness of breath. RESPIRATORY: No cough, wheezing, or hemoptysis. GASTROINTESTINAL: No nausea, vomiting, diarrhea, constipation. GENITOURINARY: No dysuria, frequency, or change in urination. VAGINAL: No vaginal discharge or bleeding MUSCULOSKELETAL: No joint or muscle swelling or pain. No neck or back pain. SKIN: No rash or easy bruising. NEUROLOGIC: No headache, vertigo, loss of consciousness, or loss of sensation. PHYSICAL EXAM: GENERAL: The patient is awake, alert, and fully oriented, in no acute distress. She is well appearing and ambulatory. HEAD: Normal with no signs of trauma. NECK: No cervical lymphadenopathy. ENT: Pupils equal, round and reactive to light, extraocular movements intact, sclera anicteric, conjunctiva clear. Mildly erythematous posterior pharynx. No tonsilar edema or exudate. Uvula midline. TMs normal b/l. No nasal congestion. No TTP of sinuses LUNGS: Clear to auscultation bilaterally. Normal excursion. No respiratory distress or use of accessory muscles. NEUROLOGICAL: Normal speech, normal gait. CN II-XII grossly intact. SKIN: Warm, dry, normal turgor, no rashes or lesions noted. Past History - Past Medical History Allergies/Adverse Reactions: Allergies Allergy/AdvReac Type Severity Reaction Status Date / Time No Known Allergies Allergy Verified 06/26/18 09:49 Home Medications: Ambulatory Orders NK [No Known Home Medication] 06/26/18 Anemia: No Asthma: No Cancer: No Cardiac Disorders: No CVA: No COPD: No CHF: No Dementia: No Diabetes: No GI Disorders: No Disorders: No HTN: No Liver Disease: No Seizures: No Thyroid Disease: No - Surgical History Cholecystectomy: Yes (2006) Neurologic Surgery: Yes (5 month old) - Reproductive History (#): 3 Para: 2 Cervical CA: No Dysfunctional Uterine Bleeding: No Ectopic : Yes Endometrial CA: No Polycystic Ovaries: No Therapeutic (s) & number: Yes (EPTOPIC) Tubal Ligation: Yes (TUBALECTOMY) Spontaneous : 0 - Immunization History Immunization Up to Date: Yes - Suicide/Smoking/Psychosocial Hx Smoking History: Never smoked Have you smoked in the past 12 months: Yes Number of Cigarettes Smoked Daily: 4 Information on smoking cessation initiated: No Hx Alcohol Use: No Drug/Substance Use Hx: No Substance Use Type: Marijuana Hx Substance Use Treatment: No *Physical Exam - Vital Signs Last Vital Signs Temp Pulse Resp BP Pulse Ox 98.1 F 90 20 111/67 99 06/26/18 09:47 06/26/18 09:47 06/26/18 09:47 06/26/18 09:47 06/26/18 09:47 Medical Decision Making - Medical Decision Making A/P: 22 y/o female with signs and symptoms of common cold. Suggested rest, fluids, tylenol if needed. Instructed her to f/u with her PMD and OB on Thursday if symptoms persist and return to the ER with any worsening or concerning symptoms. The patient verbalizes understanding of all instructions, has no further questions and is awaiting discharge. *DC/Admit/Observation/Transfer Diagnosis at time of Disposition: Common cold - Discharge Dispostion Disposition: HOME Condition at time of disposition: Good - Referrals Referrals: Mary Doty MD [Primary Care Provider] - (Call Thursday) - Patient Instructions Printed Discharge Instructions: DI for Common Cold Additional Instructions: Discharge Instructions: -Use humidifier and steam heat for nasal congestion and cough -Drink plenty of fluids and get lots of rest -Eat soup and take tylenol if needed -Practice good hand washing -Call Dr. Alvares on Thursday and schedule follow up appointment - Post Discharge Activity
== END 2018-06-26 10:27 | disposition home or self-care (01) ==
LOC: JERFT 09:44
DX: O26.899 Other specified pregnancy related conditions, unspecified trimester (principal); J00 Acute nasopharyngitis [common cold]; Z3A.00 Weeks of gestation of pregnancy not specified
CPT/HCPCS: 99281-25

== ENCOUNTER 2018-09-07 16:02 | Emergency (ER) | payer OTHER ==
[2018-09-07 16:09] VITALS: TEMP 98.1; BMI 30.4
--- NOTE | 2018-09-07 16:10 | PDOC ---
Rapid Medical Evaluation Chief Complaint: Pain Medical Evaluation: Allergies Allergy/AdvReac Type Severity Reaction Status Date / Time No Known Allergies Allergy Verified 09/07/18 16:05 09/07/18 16:06 I have performed a brief in-person evaluation of this patient. The patient presents with a chief complaint of:sent from L and D 23 weeks , for continuation of eval for N/V x ~ 12 times, has diarhea associated with emesis . Pertinent physical exam findings: pale, mild abd cramping I have ordered the following: nothing, has Iv of LR ~ 600cc has been infused. The patient will proceed to the ED for further evaluation. Discharge Disposition - Diagnosis Vomiting Qualifiers: Vomiting type: unspecified Vomiting Intractability: non-intractable Nausea presence: with nausea Qualified Code(s): R11.2 - Nausea with vomiting, unspecified Diarrhea Qualifiers: Diarrhea type: unspecified type Qualified Code(s): R19.7 - Diarrhea, unspecified - Discharge Dispostion Condition at time of disposition: Improved - Prescriptions Prescriptions: Acetaminophen [Tylenol] 650 mg PO Q6H #20 capsule Metoclopramide HCl [Reglan] 10 mg PO Q8H #12 tablet - Referrals Referrals: Mary Doty MD [Primary Care Provider] - - Patient Instructions Printed Discharge Instructions: DI for Viral Gastroenteritis -- Adult Additional Instructions: You make have a viral gastroenteritis which can run its course over several days Take reglan as needed for nausea and drink plenty of fluids to avoid dehydration which is not good for you or your baby Please follow up with your OB as is scheduled tomorrow - Post Discharge Activity
[2018-09-07] MEDS ORDERED: ACETAMINOPHEN 325 MG TABLET (FP) PO ONE (17:04)
--- NOTE | 2018-09-07 17:04 | PDOC ---
History of Present Illness - General History Source: Patient - History of Present Illness Timing/Duration: other (this am) <Lilia Loco - Last Filed: 09/07/18 19:05> <Corina Soto - Last Filed: 09/07/18 19:23> - General Chief Complaint: Pain Stated Complaint: PAIN Time Seen by Provider: 09/07/18 17:02 Past History - Past Medical History Anemia: No Asthma: No Cancer: No Cardiac Disorders: No CVA: No COPD: No CHF: No Dementia: No Diabetes: No GI Disorders: No Disorders: No HTN: No Liver Disease: No Seizures: No Thyroid Disease: No - Surgical History Cholecystectomy: Yes (2006) Neurologic Surgery: Yes (5 month old) - Reproductive History (#): 3 Para: 2 Cervical CA: No Dysfunctional Uterine Bleeding: No Ectopic : Yes Endometrial CA: No Polycystic Ovaries: No Therapeutic (s) & number: Yes (EPTOPIC) Tubal Ligation: Yes (TUBALECTOMY) Spontaneous : 0 - Immunization History Immunization Up to Date: Yes - Suicide/Smoking/Psychosocial Hx Smoking History: Never smoked Have you smoked in the past 12 months: Yes Number of Cigarettes Smoked Daily: 4 Hx Alcohol Use: No Drug/Substance Use Hx: No Substance Use Type: Marijuana Hx Substance Use Treatment: No <Lilia Loco - Last Filed: 09/07/18 19:05> <Corina Soto - Last Filed: 09/07/18 19:23> - Past Medical History Allergies/Adverse Reactions: Allergies Allergy/AdvReac Type Severity Reaction Status Date / Time No Known Allergies Allergy Verified 09/07/18 16:05 Home Medications: Ambulatory Orders Acetaminophen [Tylenol] 650 mg PO Q6H #20 capsule 09/07/18 Metoclopramide HCl [Reglan] 10 mg PO Q8H #12 tablet 09/07/18 Review of Systems - Review of Systems Constitutional: No: Chills, Fever, Malaise, Weakness ABD/GI: Yes: Diarrhea, Nausea, Vomiting. No: Abdominal cramping : No: Dysuria Musculoskeletal: Yes: Back Pain <Lilia Loco - Last Filed: 09/07/18 19:05> *Physical Exam - Vital Signs Last Vital Signs Temp Pulse Resp BP Pulse Ox 98.1 F 110 H 18 109/48 L 99 09/07/18 16:05 09/07/18 16:05 09/07/18 16:05 09/07/18 16:05 09/07/18 16:05 - Physical Exam General Appearance: Yes: Appropriately Dressed. No: Apparent Distress HEENT: positive: Normal Voice Neck: positive: Supple Gastrointestinal/Abdominal: negative: Tender Musculoskeletal: negative: CVA Tenderness Integumentary: positive: Dry, Warm Neurologic: positive: Fully Oriented, Alert, Normal Mood/Affect <Lilia Loco - Last Filed: 09/07/18 19:05> - Vital Signs Last Vital Signs Temp Pulse Resp BP Pulse Ox 98.1 F 110 H 18 109/48 L 99 09/07/18 16:05 09/07/18 16:05 09/07/18 16:05 09/07/18 16:05 09/07/18 16:05 <Corina Soto - Last Filed: 09/07/18 19:23> Moderate Sedation - Procedure Monitoring Vital Signs: Procedure Monitoring Vital Signs Temperature 98.1 F 09/07/18 16:05 Pulse Rate 110 H 09/07/18 16:05 Respiratory Rate 18 09/07/18 16:05 Blood Pressure 109/48 L 09/07/18 16:05 O2 Sat by Pulse Oximetry (%) 99 09/07/18 16:05 <Lilia Loco - Last Filed: 09/07/18 19:05> - Procedure Monitoring Vital Signs: Procedure Monitoring Vital Signs Temperature 98.1 F 09/07/18 16:05 Pulse Rate 110 H 09/07/18 16:05 Respiratory Rate 18 09/07/18 16:05 Blood Pressure 109/48 L 09/07/18 16:05 O2 Sat by Pulse Oximetry (%) 99 09/07/18 16:05 <Corina Soto - Last Filed: 09/07/18 19:23> ED Treatment Course - LABORATORY CBC & Chemistry Diagram: 09/07/18 17:26 09/07/18 17:26 <Lilia Loco - Last Filed: 09/07/18 19:05> - LABORATORY CBC & Chemistry Diagram: 09/07/18 17:26 09/07/18 17:26 - ADDITIONAL ORDERS Additional order review: Laboratory Results 09/07/18 09/07/18 18:40 17:26 Sodium 137 Potassium 3.1 L Chloride 104 Carbon Dioxide 23 Anion Gap 10 BUN 5 L Creatinine 0.4 L Creat Clearance w eGFR > 60 Random Glucose 78 Calcium 7.8 L Total Bilirubin 0.3 AST 47 H ALT 39 Alkaline Phosphatase 76 Total Protein 6.0 L Albumin 2.6 L Urine Color Yellow Urine Appearance Slcloudy Urine pH 6.0 Ur Specific [place] 1.028 Urine Protein Negative Urine Glucose (UA) Negative Urine Ketones 2+ H Urine Blood Negative Urine Nitrite Negative Urine Bilirubin Negative Urine Urobilinogen Negative Ur Leukocyte Esterase 1+ H Urine WBC (Auto) 5 Urine RBC (Auto) 2 Ur Epithelial Cells Few Urine Mucus Moderate 09/07/18 17:26 RBC 3.63 MCV 89.9 MCHC 35.7 RDW 13.3 MPV 10.0 Neutrophils % 86.1 H D Lymphocytes % 7.7 L D Monocytes % 6.0 Eosinophils % 0.1 D Basophils % 0.1 - Medications Given in the ED: ED Medications Discontinued Medications Generic Name Dose Route Start Last Admin Trade Name Ariella PRN Reason Stop Dose Admin Acetaminophen 650 mg 09/07/18 17:04 09/07/18 17:46 Tylenol - PO 09/07/18 17:05 Not Given ONCE ONE Acetaminophen 1,000 mg 09/07/18 17:05 09/07/18 17:46 Ofirmev Injection - IVPB 09/07/18 17:06 1,000 mg ONCE ONE Administration Sodium Chloride 1,000 mls @ 1,000 mls/hr 09/07/18 17:05 09/07/18 17:46 Normal Saline - IV 09/07/18 18:04 1,000 mls/hr ASDIR STA Administration Metoclopramide HCl 10 mg 09/07/18 17:05 09/07/18 17:46 Reglan Injection - IVPB 09/07/18 17:06 10 mg ONCE ONE Administration Potassium Chloride 40 meq 09/07/18 18:49 09/07/18 19:11 Potassium Chloride Oral Liquid PO 09/07/18 18:50 40 meq ONCE ONE Administration <Corina Soto - Last Filed: 09/07/18 19:23> Medical Decision Making - Medical Decision Making 09/07/18 17:04 22 yo F, (s/p 1 ectopic), ~23 weeks w/ no issues w/ preg so far , p/w n/v/d since 3am today. Has had ~8 e/o NB, NB vomiting and NB, watery diarrhea. Also c/o lower back pain. No cough, BAE or body aches. Denies abd pain at this time and no vag bleed, dysuria, f/c. No sick contacts/recent travel. Was cleared by L&D several minutes ago and had IV place w/ LR in progress. States she was also given a dose of zofran but still nauseous and was unable to tolerate crackers after meds upstairs See exam Possible gastroenteritis Currently in 2nd trimester and cleared by L&D upstairs Tachy to 110 but well regine w/ unremarkable exam otherwise -LR in progress -reglan -labs -reassess/po trial 09/07/18 18:57 K 3.1, will replete. Rest of labs unremarkable. UA w/ 1+ LE and 2+ ketones, ucx sent. No dysuria at this time. Pt reports feeling better and was able to tolerate water and fruits in ED. Will repeat vitals. Anticipate dc w/ supportive tx. Pt now informs me that she has OB appt tomorrow. Signed out to KUNAL Soto at this time <Lilia Loco - Last Filed: 09/07/18 19:05> - Medical Decision Making 09/07/18 19:22 patient alert tolerating PO., no urinary symptoms. patient reports that this was not a clean catch. will repeat with ob <Corina Soto - Last Filed: 09/07/18 19:23> *DC/Admit/Observation/Transfer <Lilia Loco - Last Filed: 09/07/18 19:05> <Corina Soto - Last Filed: 09/07/18 19:23> Diagnosis at time of Disposition: Vomiting Qualifiers: Vomiting type: unspecified Vomiting Intractability: non-intractable Nausea presence: with nausea Qualified Code(s): R11.2 - Nausea with vomiting, unspecified Diarrhea Qualifiers: Diarrhea type: unspecified type Qualified Code(s): R19.7 - Diarrhea, unspecified - Discharge Dispostion Condition at time of disposition: Improved - Prescriptions Prescriptions: Acetaminophen [Tylenol] 650 mg PO Q6H #20 capsule Metoclopramide HCl [Reglan] 10 mg PO Q8H #12 tablet - Referrals Referrals: Mary Doty MD [Primary Care Provider] - - Patient Instructions Printed Discharge Instructions: DI for Viral Gastroenteritis -- Adult Additional Instructions: You make have a viral gastroenteritis which can run its course over several days Take reglan as needed for nausea and drink plenty of fluids to avoid dehydration which is not good for you or your baby Please follow up with your OB as is scheduled tomorrow - Post Discharge Activity
[2018-09-07] MEDS ORDERED: METOCLOPRAMIDE HCL INJECTION 10 MG/2 ML VIAL IVPB ONE (17:05)
[2018-09-07] MEDS ORDERED: SODIUM CHLORIDE 1,000 ML IV STA (17:05)
[2018-09-07] MEDS ORDERED: ACETAMINOPHEN 1000 MG/100 ML VIAL (NON FORMULARY) IVPB ONE (17:05)
[2018-09-07] MEDS ORDERED: METOCLOPRAMIDE HCL INJECTION 10 MG/2 ML VIAL ONE (17:31)
[2018-09-07] MEDS ORDERED: ACETAMINOPHEN INJECTION 100 ML IVPB ONE (17:31)
[2018-09-07 17:44] LABS: BASO % 0.1 % (0-2.0); EOS % 0.1 % (0-4.5); HEMATOCRIT 32.7 % (32.4-45.2); HEMOGLOBIN 11.6 GM/dL (10.7-15.3); LYMPH % 7.7 % (8-40); MCHC 35.7 g/dl (32.0-36.0); MEAN CELL VOLUME 89.9 fl (80-96); NEUT % 86.1 % (42.8-82.8); PLATELET COUNT 131 K/MM3 (134-434); RBC 3.63 M/mm3 (3.60-5.2); RDW 13.3 % (11.6-15.6); WHITE BLOOD COUNT 7.5 K/mm3 (4.0-10.0)
[2018-09-07 18:17] LABS: ALBUMIN 2.6 g/dl (3.4-5.0); ALK PHOS 76 U/L (45-117); ANION GAP 10 MMOL/L (8-16); BILIRUBIN,TOTAL 0.3 mg/dL (0.2-1); BLOOD UREA NITROGEN 5 mg/dL (7-18); CALCIUM 7.8 mg/dL (8.5-10.1); CHLORIDE 104 mmol/L (98-107); CO2 23 mmol/L (21-32); CREATININE 0.4 mg/dL (0.55-1.3); GLUCOSE,RANDOM 78 mg/dL (74-106); POTASSIUM 3.1 mmol/L (3.5-5.1); SGOT/AST 47 U/L (15-37); SGPT/ALT 39 U/L (13-61); SODIUM 137 mmol/L (136-145)
[2018-09-07] MEDS ORDERED: POTASSIUM CHLORIDE ORAL LIQUID 20 MEQ/15 ML PO ONE (18:49)
[2018-09-07 19:01] LABS: URINE APPEARANCE SLCLOUDY; URINE BILIRUBIN NEGATIVE (<2.0 mg/dL); URINE COLOR YELLOW; URINE GLUCOSE (UA) NEGATIVE (NEGATIVE); URINE KETONE 2+ (NEGATIVE); URINE LEUK ESTERASE 1+ (NEGATIVE); URINE NITRITE NEGATIVE (NEGATIVE); URINE PROTEIN NEGATIVE (NEGATIVE); URINE UROBILINOGEN NEGATIVE mg/dL (0.2-1.0)
[2018-09-07 19:04] LABS: EPI CELLS FEW /HPF (FEW); URINE MUCUS MODERATE
[2018-09-07] MEDS ORDERED: POTASSIUM CHLORIDE ORAL LIQUID 20 MEQ/15 ML ONE (19:11)
[2018-09-07 19:26] VITALS: BP 116/61; PULSE 100
== END 2018-09-07 19:24 | disposition home or self-care (01) ==
LOC: JER 16:02
PROC: 3E033GC Introduction of Other Therapeutic Substance into Peripheral Vein, Percutaneous Approach (ICD-10-PCS; principal; 2018-09-07)
PROC: 3E033NZ Introduction of Analgesics, Hypnotics, Sedatives into Peripheral Vein, Percutaneous Approach (ICD-10-PCS; 2018-09-07)
DX: O99.612 Diseases of the digestive system complicating pregnancy, second trimester (principal); A08.4 Viral intestinal infection, unspecified; B97.89 Other viral agents as the cause of diseases classified elsewhere; Z3A.23 23 weeks gestation of pregnancy
CPT/HCPCS: 36415; 80053; 81003; 81015; 85025; 87077; 87086; 99283-25; J0131; J7030

== ENCOUNTER 2019-11-10 09:04 | Emergency (ER) | payer OTHER ==
[2019-11-10 09:37] VITALS: BMI 25.7
[2019-11-10] MEDS ORDERED: PHENAZOPYRIDINE HCL 100 MG TABLET (FP) PO ONE (10:02)
[2019-11-10] MEDS ORDERED: KETOROLAC TROMETHAMINE 30 MG/1 ML VIAL IM ONE (10:02)
[2019-11-10] MEDS ORDERED: PHENAZOPYRIDINE HCL 100 MG TABLET (FP) ONE (10:07)
[2019-11-10] MEDS ORDERED: KETOROLAC TROMETHAMINE 30 MG/1 ML VIAL ONE (10:08)
[2019-11-10 10:36] LABS: BASO % 0.5 % (0-2.0); EOS % 1.7 % (0-4.5); HEMATOCRIT 34.9 % (32.4-45.2); HEMOGLOBIN 11.7 GM/dL (10.7-15.3); LYMPH % 36.6 % (8-40); MCH 30.1 pg (25.7-33.7); MCHC 33.6 g/dl (32.0-36.0); MEAN CELL VOLUME 89.6 fl (80-96); NEUT % 54.2 % (42.8-82.8); PLATELET COUNT 166 K/MM3 (134-434); RBC 3.89 M/mm3 (3.60-5.2); RDW 14.1 % (11.6-15.6); WHITE BLOOD COUNT 5.7 K/mm3 (4.0-10.0)
--- NOTE | 2019-11-10 10:37 | PDOC ---
History of Present Illness - General History Source: Patient Exam Limitations: Clinical Condition - History of Present Illness Initial Comments: 11/10/19 10:35 Patient with past medical history of left ectopic status post appendectomy 2 years ago presented with complaint of 2 days history of suprapubic discomfort, urinary frequency, dysuria and pain radiating to bilateral groin area to mid back. Denies nausea, vomiting, fever, chills, body aches, weakness. Patient reports symptoms similar to when she had a ectopic . LMP October 22 Is this a multiple visit Asthma Patient?: No <Orville Fermin - Last Filed: 11/10/19 12:03> <Irish Paulson - Last Filed: 11/10/19 12:14> - General Chief Complaint: Pain Stated Complaint: ABD PAIN Time Seen by Provider: 11/10/19 09:39 Past History - Past Medical History Anemia: No Asthma: No Cancer: No Cardiac Disorders: No CVA: No COPD: No CHF: No Dementia: No Diabetes: No GI Disorders: No Disorders: No HTN: No Liver Disease: No Seizures: No Thyroid Disease: No - Surgical History Cholecystectomy: Yes (2006) Neurologic Surgery: Yes (5 month old) - Reproductive History (#): 3 Para: 2 Cervical CA: No Dysfunctional Uterine Bleeding: No Ectopic : Yes Endometrial CA: No Polycystic Ovaries: No Therapeutic (s) & number: Yes (EPTOPIC) Tubal Ligation: Yes (TUBALECTOMY) Spontaneous : 0 - Immunization History Immunization Up to Date: Yes - Psycho Social/Smoking Cessation Hx Smoking History: Current every day smoker Have you smoked in the past 12 months: Yes Number of Cigarettes Smoked Daily: 4 Information on smoking cessation initiated: Yes Hx Alcohol Use: No Drug/Substance Use Hx: Yes Substance Use Type: Marijuana Hx Substance Use Treatment: No <Orville Fermin - Last Filed: 11/10/19 12:03> <Irish Paulson - Last Filed: 11/10/19 12:14> - Past Medical History Allergies/Adverse Reactions: Allergies Allergy/AdvReac Type Severity Reaction Status Date / Time No Known Allergies Allergy Verified 11/10/19 09:33 Home Medications: Ambulatory Orders Acetaminophen [Tylenol] 650 mg PO Q6H #20 capsule 09/07/18 Ciprofloxacin [Cipro (Restricted To Id)] 500 mg PO Q12H #6 tablet 11/10/19 Ibuprofen 800 mg PO Q8H PRN #20 tablet 11/10/19 Review of Systems - Review of Systems Able to Perform ROS?: Yes Is the patient limited [place] proficient: No Constitutional: No: Chills, Fever, Malaise HEENTM: No: Symptoms Reported, See HPI, Eye Pain, Blurred Vision, Tearing, Recent change in vision, Double Vision, Cataracts, Ear Pain, Ocular Prothesis, Ear Discharge, Nose Pain, Nose Congestion, Tinnitus, Nose Bleeding, Hearing Loss , Throat Pain, Throat Swelling, Mouth Pain, Dental Problems, Difficulty Swallowing, Mouth Swelling, Other Respiratory: No: Symptoms reported, See HPI, Cough, Orthopnea, Shortness of Breath, SOB with Exertion, SOB at Rest, Stridor, Wheezing, Productive cough, Hemoptysis, Other Cardiac (ROS): No: Symptoms Reported, See HPI, Chest Pain, Edema, Irregular Heart Rate, Lightheadedness, Palpitations, Syncope, Chest Tightness, Other ABD/GI: Yes: Symptoms Reported, See HPI, Abdominal cramping (supapubic discomfort). No: Abd. Pain w/ defecation, Blood Streaked Bowels, Constipated, Diarrhea, Difficulty Swallowing, Nausea, Poor Appetite, Rectal Bleeding, Vomiting, Indigestion : Yes: Symptoms Reported, See HPI, Burning, Dysuria, Frequency, Pain ( suprapubic discomfort), Urgency. No: Discharge, Hematuria Musculoskeletal: Yes: Symptoms Reported, See HPI, Back Pain (b/l mid-back pain) Integumentary: No: Symptoms Reported All Other Systems: Reviewed and Negative <Orville Fermin - Last Filed: 11/10/19 12:03> *Physical Exam - Vital Signs Last Vital Signs Temp Pulse Resp BP Pulse Ox 98 F 80 18 96/61 100 11/10/19 09:33 11/10/19 09:33 11/10/19 09:33 11/10/19 09:33 11/10/19 09:33 - Physical Exam General Appearance: Yes: Nourished, Appropriately Dressed. No: Apparent Distress HEENT: positive: Normal ENT Inspection Neck: positive: Supple Respiratory/Chest: positive: Lungs Clear, Normal Breath Sounds. negative: Respiratory Distress, Accessory Muscle Use Cardiovascular: positive: Regular Rhythm, Regular Rate Gastrointestinal/Abdominal: positive: Normal Bowel Sounds, Tender (moderat suprapubic discomfort). negative: Distended, Guarding, Rebound Musculoskeletal: positive: Normal Inspection. negative: CVA Tenderness Extremity: positive: Normal Inspection Integumentary: positive: Normal Color Neurologic: positive: Fully Oriented, Alert, Normal Mood/Affect, Normal Response <Orville Fermin - Last Filed: 11/10/19 12:03> - Vital Signs Last Vital Signs Temp Pulse Resp BP Pulse Ox 98 F 80 18 96/61 100 11/10/19 09:33 11/10/19 09:33 11/10/19 09:33 11/10/19 09:33 11/10/19 09:33 <Irish Paulson - Last Filed: 11/10/19 12:14> ED Treatment Course - LABORATORY CBC & Chemistry Diagram: 11/10/19 09:55 11/10/19 09:59 <Orville Fermin - Last Filed: 11/10/19 12:03> - LABORATORY CBC & Chemistry Diagram: 11/10/19 09:55 11/10/19 09:59 - ADDITIONAL ORDERS Additional order review: Laboratory Results 11/10/19 09:55 Urine HCG, Qual Negative 11/10/19 09:55 RBC 3.89 MCV 89.6 MCHC 33.6 RDW 14.1 MPV 10.0 Neutrophils % 54.2 D Lymphocytes % 36.6 D Monocytes % 7.0 Eosinophils % 1.7 D Basophils % 0.5 D - Medications Given in the ED: ED Medications Discontinued Medications Generic Name Dose Route Start Last Admin Trade Name Freq PRN Reason Stop Dose Admin Ketorolac Tromethamine 30 mg 11/10/19 10:02 11/10/19 10:39 Toradol Injection - IM 11/10/19 10:03 30 mg ONCE ONE Administration Phenazopyridine HCl 200 mg 11/10/19 10:02 11/10/19 10:39 Pyridium - PO 11/10/19 10:03 200 mg ONCE ONE Administration <Irish Paulson - Last Filed: 11/10/19 12:14> Medical Decision Making - Medical Decision Making 11/10/19 10:40 Patient with past medical history of left ectopic status post appendectomy 2 years ago presented with complaint of 2 days history of suprapubic discomfort, urinary frequency, dysuria and pain radiating to bilateral groin area to mid back. Denies nausea, vomiting, fever, chills, body aches, weakness. Patient reports symptoms similar to when she had a ectopic . LMP October 22 Clinical exam significant for mild tenderness to suprapubic region without guarding or rebound otherwise normal exam. No CVA tenderness. Symptoms likely cystitis versus less likely kidney stone versus . CBC, CMP lab ordered. UA urine hCG lab ordered to rule out infection of . Toradol 30 mg IM ordered for pain and Pyridium 200 mg ordered for bladder spasm. Treat based on lab results 11/10/19 11:28 CBC and chemistry lab unremarkable. UA within normal limits showed no leukocytosis. Spiral CT ordered to rule out kidney stone. Patient reported improvement of pain with Toradol and Pyridium 11/10/19 12:[address] showed 3 cm left ovarian cyst with small amount of fluid in cul-de- sac which is likely the cause of patient's pain. No kidney stone on CT. Patient with improvement of pain now and stable for discharge on ibuprofen as needed for ovarian cyst with VETER[facility] BACTERIOLOGIST follow-up <Orville Fermin - Last Filed: 11/10/19 12:03> - Medical Decision Making The patient was seen and evaluated in conjunction with midlevel provider under my direct supervision, ancillary studies were reviewed. I agree with the plan as outlined JONNY Fermin. HPI, workup/dispo as outlined. VS reviewed, wnl. ua neg for blood or infection. labs and lytes wnl. neg preg test. ct with left ovarian cyst otherwise neg for kidney stones or acute pathology anticipate discharge, pcp/bottom ironer followup, return precautions 11/10/19 10:42 11/10/19 12:14 11/10/19 12:14 <Irish Paulson - Last Filed: 11/10/19 12:14> Discharge - Discharge Information Problems reviewed: Yes - Admission No <Orville Fermin - Last Filed: 11/10/19 12:03> <Irish Paulson - Last Filed: 11/10/19 12:14> - Discharge Information Clinical Impression/Diagnosis: Dysuria Ovarian cyst Qualifiers: Laterality: left Qualified Code(s): N83.202 - Unspecified ovarian cyst, left side Abdominal pain Qualifiers: Abdominal location: epigastric Qualified Code(s): R10.13 - Epigastric pain Condition: Improved Disposition: HOME - Additional Discharge Information Prescriptions: Ciprofloxacin [Cipro (Restricted To Id)] 500 mg PO Q12H #6 tablet Ibuprofen 800 mg PO Q8H PRN #20 tablet PRN Reason: pain - Follow up/Referral Referrals: Mary Doty MD [Primary Care Provider] - - Patient Discharge Instructions Patient Printed Discharge Instructions: DI for Ovarian Cyst Additional Instructions: Your CAT scan shows ovarian cyst with small fluid which is likely the cause of your pain. Take prescribed medication as prescribed for pain. Increase fluid intake. Follow-up with V[facility]ER[facility] BACTERIOLOGIST as discussed
[2019-11-10 10:50] LABS: URINE APPEARANCE CLOUDY; URINE BILIRUBIN NEGATIVE (NEGATIVE); URINE COLOR YELLOW; URINE GLUCOSE (UA) NEGATIVE (NEGATIVE); URINE KETONE NEGATIVE (NEGATIVE); URINE LEUK ESTERASE NEGATIVE (NEGATIVE); URINE NITRITE NEGATIVE (NEGATIVE); URINE PROTEIN NEGATIVE (NEGATIVE); URINE UROBILINOGEN 0.2 mg/dL (0.2-1.0)
[2019-11-10 11:04] LABS: ALBUMIN 3.7 g/dl (3.4-5.0); ALK PHOS 57 U/L (45-117); ANION GAP 5 MMOL/L (8-16); BILIRUBIN,TOTAL < 0.1 mg/dL (0.2-1); BLOOD UREA NITROGEN 10.5 mg/dL (7-18); CALCIUM 8.5 mg/dL (8.5-10.1); CHLORIDE 111 mmol/L (98-107); CO2 26 mmol/L (21-32); CREATININE 0.7 mg/dL (0.55-1.3); GLUCOSE,RANDOM 88 mg/dL (74-106); POTASSIUM 3.7 mmol/L (3.5-5.1); SGOT/AST 14 U/L (15-37); SGPT/ALT 21 U/L (13-61); SODIUM 142 mmol/L (136-145); TOT PROT 6.3 g/dl (6.4-8.2)
[2019-11-10 12:17] VITALS: BP 111/53; PULSE 61; TEMP 97.9
== END 2019-11-10 12:16 | disposition home or self-care (01) ==
LOC: JER 09:04
PROC: 3E0233Z Introduction of Anti-inflammatory into Muscle, Percutaneous Approach (ICD-10-PCS; principal; 2019-11-10)
DX: N83.202 Unspecified ovarian cyst, left side (principal); R10.13 Epigastric pain
CPT/HCPCS: 36415; 74176-TC; 80053; 81003; 84703; 85025; 87086; 87491; 87591; 96372; 99285-25

== ENCOUNTER 2021-09-18 21:36 | Emergency (ER) | payer OTHER ==
[2021-09-18 21:50] VITALS: BP 116/63; PULSE 96; TEMP 98.6; BMI 25.7
[2021-09-20 13:06] LABS: SARS-CoV-2 NAA Not Detected (Not Detected)
== END 2021-09-18 23:03 | disposition home or self-care (01) ==
LOC: JER 21:36
DX: J02.9 Acute pharyngitis, unspecified (principal); R51.9 Headache, unspecified
CPT/HCPCS: 87804; 99283-25; C9803-CS; U0003; U0005